=== PATIENT | female | born 1960 | race Two or more races ===

== ENCOUNTER → 2022-02-18 | Day surgery (SDC) | payer OTHER ==
[~2022-02-18] VITALS: Ht 157.5 cm; Wt 87.5 kg
[~2022-02-18] MED LIST: CATAFLAN PO; CLARITIN; COZAAR25 MG PO; HYDROCHLOROTH12.5 MG PO; MUCIN PO; PRILOSEC OTC20 MG PO; TOPROL XL25 M1 PO; ZYRTEC10 MG PO
== END | disposition home or self-care (01) ==
LOC: ADM 02-16 15:00 → CIR.AMB 01:10
PROVIDERS: ATTEND Surgery
DX: C50.912 Malignant neoplasm of unspecified site of left female breast (principal); Z20.822 Contact with and (suspected) exposure to COVID-19; Z88.2 Allergy status to sulfonamides; Z42.1 Encounter for breast reconstruction following mastectomy; I10 Essential (primary) hypertension; Z95.0 Presence of cardiac pacemaker; J45.909 Unspecified asthma, uncomplicated; G47.33 Obstructive sleep apnea (adult) (pediatric); Z99.89 Dependence on other enabling machines and devices; M79.7 Fibromyalgia; N62 Hypertrophy of breast
CPT/HCPCS: 19301; 19281; 19318; 38525; 78195; A9541; L8699